=== PATIENT | female | born 1945 | race Caucasian/White ===

== ENCOUNTER 2021-05-11 17:15 | Observation (INO) ==
[2021-05-11] MEDS ORDERED: 0.9 % Sodium Chloride 1,000 ML IVC ONE (17:40)
[2021-05-11 18:11] LABS: Basophils % 0.5 %; Eosinophils % 0.4 %; Immature Granulocytes % 0.7 % (0-4); Lymphocytes # 2.2 K/mcL (0.6-4.6); Lymphocytes % 38.5 %; Mean Corpuscular HGB Conc 30.3 g/dL (31.6-35.5); Mean Corpuscular Hemoglobin 26.6 pg (28.0-33.3); Mean Corpuscular Volume 87.8 fL (83.0-100.0); Mean Platelet Volume 9.6 fL (9.4-12.4); Monocytes # 0.6 K/mcL (0.0-1.3); Monocytes % 11.3 %; Neutrophils # 2.8 K/mcL (1.6-8.9); Platelet Count 296 K/mcL (140-400); Red Blood Count 3.76 M/mcL (3.82-4.97); Red Cell Distribution Width 13.9 % (11.5-14.5); Segmented Neutrophils % 48.6 %; White Blood Count 5.7 K/mcL (4.3-11.1)
[2021-05-11 18:20] LABS: INR 1.1
[2021-05-11 19:03] LABS: Alanine Aminotransferase 10 Units/L (7-52); Albumin 3.7 g/dL (3.5-5.7); Albumin/Globulin Ratio 1.2 (1.1-2.2); Alkaline Phosphatase 82 Units/L (34-104); Aspartate Amino Transferase 9 Units/L (13-39); BUN/Creatinine Ratio 8 (6-26); Bilirubin,Indirect 0.3 mg/dL (0.0-1.0); Bilirubin,Total 0.3 mg/dL (0.3-1.0); Blood Urea Nitrogen 11 mg/dL (8-23); Calcium 8.7 mg/dL (8.6-10.3); Carbon Dioxide 31 mEq/L (23-29); Chloride 95 mEq/L (98-107); Creatine Kinase 53 Units/L (30-223); Ethanol < 10 mg/dL (Less than 10); Glucose 100 mg/dL (70-105); Osmolality,Calculated 281 (280-300); Potassium 3.3 mEq/L (3.5-5.1); Sodium 136 mEq/L (136-145); Total Protein 6.7 g/dL (6.4-8.9); Troponin I < 0.03 ng/mL (< 0.04); eGFR For African Americans 47 (> 60); eGFR For Non-African Americans 38 (> 60)
[2021-05-11 19:12] LABS: Bilirubin,Urine Negative (Negative); Blood,Urine Negative (Negative); Clarity,Urine Clear (Clear); Color,Urine Yellow (Yellow); Glucose,Urine (UA) Normal (Normal); Ketones,Urine Negative (Negative); Leukocyte Esterase,Urine Negative (Negative); Nitrite,Urine Negative (Negative); Protein,Urine Trace mg/dL (Neg-Trace); Specific Gravity,Urine 1.016 (1.010-1.025); Urobilinogen,Urine Normal (Normal)
[2021-05-11 19:18] LABS: Amphetamine Screen,Urine Negative ng/mL (Cutoff=1000); Barbiturate Screen,Urine Negative ng/mL (Cutoff=200); Benzodiazepines Screen,Urine Negative ng/mL (Cutoff=200); Cannabinoid Screen,Urine Negative ng/mL (Cutoff = 50); Cocaine Screen,Urine Negative ng/mL (Cutoff= 300); Opiate Screen,Urine Negative ng/mL (Cutoff=300); Phencyclidine Screen,Urine Negative ng/mL (Cutoff=25)
[2021-05-11 20:18] LABS: Influenza A PCR Negative (Negative); Influenza B PCR Negative (Negative); Resp. Syncytial Virus PCR Negative (Negative)
[2021-05-11 20:19] LABS: SARS-CoV-2 by PCR (In House) Negative (Negative)
[2021-05-11] MEDS ORDERED: Potassium Chloride 20 MEQ, Lidocaine 1% 2 ML in 0.9 % Sodium Chloride 250 ML IVPB ONE (22:36)
[2021-05-11] MEDS ORDERED: Perflutren Lipid Microsphere 1.3 ML in 0.9 % Sodium Chloride 8.7 ML IVP PRN (22:40)
[2021-05-11 23:21] LABS: Adenovirus Not Detected (Not Detect); Bordetella Pertussis Not Detected (Not Detect); Chlamydophila pneumoniae Not Detected (Not Detect); Coronavirus 229E Not Detected (Not Detect); Coronavirus HKU1 Not Detected (Not Detect); Coronavirus NL63 Not Detected (Not Detect); Coronavirus OC43 Not Detected (Not Detect); Human Metapneumovirus Not Detected (Not Detect); Human Rhinovirus/Enterovirus Not Detected (Not Detect); Influenza A Subtype 2009 H1 Not Detected (Not Detect); Influenza B Not Detected (Not Detect); Mycoplasma pneumoniae Not Detected (Not Detect); Parainfluenza Virus 1 Not Detected (Not Detect); Parainfluenza Virus 2 Not Detected (Not Detect); Parainfluenza Virus 3 Not Detected (Not Detect); Parainfluenza Virus 4 Not Detected (Not Detect); Respiratory Syncytial Virus Not Detected (Not Detect); SARS-CoV-2 Not Detected (Not Detect)
[2021-05-11] MEDS ORDERED: Naloxone 0.4 MG/ML INJ IVP PRN (23:33)
[2021-05-11] MEDS ORDERED: Ondansetron 4 MG/2 ML VIAL IVP PRN (23:33)
[2021-05-12 05:49] LABS: Hematocrit 31.1 % (35.3-44.9); Hemoglobin 9.7 g/dL (11.5-15.4); Mean Corpuscular HGB Conc 31.2 g/dL (31.6-35.5); Mean Corpuscular Hemoglobin 27.7 pg (28.0-33.3); Mean Corpuscular Volume 88.9 fL (83.0-100.0); Mean Platelet Volume 9.9 fL (9.4-12.4); Platelet Count 221 K/mcL (140-400); Red Cell Distribution Width 13.8 % (11.5-14.5); White Blood Count 3.7 K/mcL (4.3-11.1)
[2021-05-12 06:09] LABS: Activated Partial Thrombo Time 29.1 Seconds (26.0-36.0)
[2021-05-12 06:11] LABS: Prothrombin Time 11.5 Seconds (9.4-12.1)
[2021-05-12 06:34] LABS: % Iron Saturation 9 % (15-50); BUN/Creatinine Ratio 13 (6-26); Blood Urea Nitrogen 13 mg/dL (8-23); Calcium 8.4 mg/dL (8.6-10.3); Carbon Dioxide 28 mEq/L (23-29); Chloride 99 mEq/L (98-107); Chol/HDL Ratio 5.1 (0-4.9); Cholesterol 174 mg/dL (< 200); Glucose 90 mg/dL (70-105); HDL Cholesterol 34 mg/dL (40-59); Iron 29 mcg/dL (50-170); LDL Cholesterol,Calculated 65 mg/dL (< 100); Magnesium 1.8 mg/dL (1.6-2.6); Osmolality,Calculated 284 (280-300); Potassium 3.4 mEq/L (3.5-5.1); Sodium 137 mEq/L (136-145); Transferrin 222 mg/dL (203-362); Triglycerides 377 mg/dL (< 150); Troponin I < 0.03 ng/mL (< 0.04); eGFR For African Americans > 60 (> 60); eGFR For Non-African Americans 52 (> 60)
[2021-05-12 06:45] LABS: Ferritin 17 ng/mL (10-120)
[2021-05-12] MEDS: PARoxetine 10 MG TABLET PO SCH (08:13)
[2021-05-12] MEDS: Loratadine 10 MG TABLET PO SCH (08:13)
[2021-05-12] MEDS: Aspirin Enteric Coated 81 MG Tablet PO SCH (08:14)
[2021-05-12] MEDS ORDERED: Iron Sucrose Complex 400 MG in 0.9 % Sodium Chloride 250 ML IVPB ONE (08:46)
[2021-05-12 10:18] LABS: Estimated Average Glucose 105 mg/dl; Hemoglobin A1C 5.3 %
[2021-05-12] MEDS: Acetaminophen 325 MG TABLET PO PRN ×2 (12:52→18:53)
[2021-05-13] MEDS: Acetaminophen 325 MG TABLET PO PRN ×3 (00:10→17:46)
[2021-05-13 05:23] LABS: BUN/Creatinine Ratio 13 (6-26); Blood Urea Nitrogen 10 mg/dL (8-23); Calcium 8.8 mg/dL (8.6-10.3); Carbon Dioxide 30 mEq/L (23-29); Chloride 99 mEq/L (98-107); Glucose 99 mg/dL (70-105); Osmolality,Calculated 281 (280-300); Potassium 3.3 mEq/L (3.5-5.1); Sodium 136 mEq/L (136-145); eGFR For African Americans > 60 (> 60); eGFR For Non-African Americans > 60 (> 60)
[2021-05-13 05:35] LABS: Triiodothyronine (T3) Free 2.51 pg/mL (2.50-3.90)
[2021-05-13 05:38] LABS: Hematocrit 30.2 % (35.3-44.9); Hemoglobin 9.1 g/dL (11.5-15.4); Mean Corpuscular HGB Conc 30.1 g/dL (31.6-35.5); Mean Corpuscular Hemoglobin 26.3 pg (28.0-33.3); Mean Corpuscular Volume 87.3 fL (83.0-100.0); Platelet Count 240 K/mcL (140-400); Red Blood Count 3.46 M/mcL (3.82-4.97); Red Cell Distribution Width 13.8 % (11.5-14.5); White Blood Count 3.1 K/mcL (4.3-11.1)
[2021-05-13] MEDS: Aspirin Enteric Coated 81 MG Tablet PO SCH (07:58)
[2021-05-13] MEDS: Hydrocortisone 10 MG TABLET PO SCH (07:59)
[2021-05-13] MEDS: Loratadine 10 MG TABLET PO SCH (07:59)
[2021-05-13] MEDS: PARoxetine 10 MG TABLET PO SCH (07:59)
[2021-05-13] MEDS ORDERED: Iron Sucrose Complex 250 MG in 0.9 % Sodium Chloride 250 ML IVPB ONE (08:32)
[2021-05-13] MEDS ORDERED: tiZANidine 4 MG TABLET PO PRN (09:28)
[2021-05-13] MEDS ORDERED: Fluticasone Propionate Nasal 50 MCG/SPRAY BOTTLE NS PRN (09:28)
[2021-05-13] MEDS ORDERED: Gabapentin 300 MG CAPSULE PO STA ×2 (09:30)
[2021-05-13] MEDS: polyethylene glycoL 3350 17 GM POWD.PACK PO SCH (17:39)
[2021-05-13] MEDS ORDERED: Gabapentin 300 MG CAPSULE PO PRN (21:00)
[2021-05-13] MEDS ORDERED: QUEtiapine Fumarate 25 MG TABLET PO SCH (21:00)
[2021-05-13] MEDS: Diclofenac Sodium (DR) 50 MG TABLET.DR PO SCH (21:57)
[2021-05-14] MEDS: Loratadine 10 MG TABLET PO SCH (10:02)
[2021-05-14] MEDS: Hydrocortisone 10 MG TABLET PO SCH (10:03)
[2021-05-14] MEDS: Aspirin Enteric Coated 81 MG Tablet PO SCH (10:03)
[2021-05-14] MEDS: PARoxetine 10 MG TABLET PO SCH (10:04)
[2021-05-14] MEDS: polyethylene glycoL 3350 17 GM POWD.PACK PO SCH (10:04)
[2021-05-14] MEDS: Diclofenac Sodium (DR) 50 MG TABLET.DR PO SCH (10:04)
[2021-05-14 10:27] VITALS: BP 109/63; PULSE 78; TEMP 98; O2SAT 97
[2021-05-14 15:05] LABS: Adenovirus Not Detected (Not Detect); Bordetella Pertussis Not Detected (Not Detect); Chlamydophila pneumoniae Not Detected (Not Detect); Coronavirus 229E Not Detected (Not Detect); Coronavirus HKU1 Not Detected (Not Detect); Coronavirus NL63 Not Detected (Not Detect); Coronavirus OC43 Not Detected (Not Detect); Human Metapneumovirus Not Detected (Not Detect); Human Rhinovirus/Enterovirus Not Detected (Not Detect); Influenza A Subtype 2009 H1 Not Detected (Not Detect); Influenza B Not Detected (Not Detect); Mycoplasma pneumoniae Not Detected (Not Detect); Parainfluenza Virus 1 Not Detected (Not Detect); Parainfluenza Virus 2 Not Detected (Not Detect); Parainfluenza Virus 3 Not Detected (Not Detect); Parainfluenza Virus 4 Not Detected (Not Detect); Respiratory Syncytial Virus Not Detected (Not Detect); SARS-CoV-2 Not Detected (Not Detect)
== END 2021-05-14 18:00 ==
LOC: 4WAOSI 17:15 → EMEROOARM 17:15 → SUATTDRO 21:07 → 4WAOSI 22:27
PROVIDERS: ADMIT Internal Medicine; ATTEND Student in an Organized Health Care Education/Training Program